=== PATIENT | female | born 1970 | race Caucasian/White ===

== ENCOUNTER 2016-10-28 22:17 | Emergency (ER) | payer BC ==
[~2016-10-28] VITALS: Ht 154.9 cm; Wt 68.0 kg
[2016-10-28 22:20] VITALS: BP 143/103
--- NOTE | 2016-10-28 22:24 | NUR ---
PATIENT TO BED 04.
--- NOTE | 2016-10-28 22:33 | NUR ---
Dr. Heath evaluating patient at bedside.
[2016-10-28] MEDS ORDERED: NITROGLYCERIN 0.4 MG TAB SL ONE (22:35)
[2016-10-28] MEDS ORDERED: ASPIRIN 325 MG TAB PO ONE (22:35)
--- NOTE | 2016-10-28 22:58 | NUR ---
46Y/F PATIENT PRESENTS TO ED WITH C/O CHEST PAIN X 3 HRS . PT STATES PAIN STARTED 3 HRS AGO, NO SOB, NO FEVER . DENIES N/V/D; SKIN IS PINK/WARM/DRY; AAOX4 WITH EVEN AND STEADY GAIT; LUNGS CLEAR BL; HR EVEN AND REGULAR; PT DENIES ANY FEVER, SOB, OR COUGH AT THIS TIME; PATIENT STATES PAIN OF 6/10 AT THIS TIME; VSS; PATIENT POSITIONED FOR COMFORT; HOB ELEVATED; BEDRAILS UP X2; BED DOWN. ER MD MADE AWARE OF PT STATUS.
--- NOTE | 2016-10-29 01:33 | NUR ---
Patient appears to be resting comfortably in bed. Vital Signs within normal limits. Respirations even and unlabored.
[2016-10-29 02:29] VITALS: BP 125/80
--- NOTE | 2016-10-29 02:30 | NUR ---
Patient discharged with v/s stable. Written and verbal after care instructions given and explained. Patient alert, oriented and verbalized understanding of instructions. Ambulatory with steady gait. All questions addressed prior to discharge. ID band removed. Patient advised to follow up with PMD. Rx of MOTRIN 600 MG given. Patient educated on indication of medication including possible reaction and side effects. Opportunity to ask questions provided and answered.
== END 2016-10-29 02:30 | disposition home or self-care (01) ==
LOC: MED 22:17
DX: R07.89 Other chest pain (principal); R03.0 Elevated blood-pressure reading, without diagnosis of hypertension; R11.0 Nausea; E78.00 Pure hypercholesterolemia, unspecified
CPT/HCPCS: 36415; 71010; 80053; 83880; 84484; 85025; 93005; 99285; Q0092